=== PATIENT | male | born 1965 | race Caucasian/White ===

== ENCOUNTER 2019-10-23 15:58 | Outpatient (CLI) | payer SELFPAY ==
--- NOTE | 2019-10-23 16:06 | XR_ITS ---
WS: [id number] Right shoulder, 3 views, 10/23/2019 Clinical Data: PAIN IN RIGHT SHOULDER Comparison: None. Findings: No fractures or dislocations are seen. The AC joint is normal. The adjacent right clavicle, right sca pula and ribs are normal. The soft tissues are unremarkable. XR/XR shoulder RT min 2V* [id number] Impression: Negative right shoulder.
== END 2019-10-23 15:59 | disposition home or self-care (01) ==
LOC: RADOUTREAD 16:03
PROVIDERS: PCP Nurse Practitioner Family; Referring Provider Nurse Practitioner Family; Visit Provider Nurse Practitioner Family
DX: M25.511 Pain in right shoulder (principal)
CPT/HCPCS: 73030

== ENCOUNTER 2020-04-05 08:21 | Outpatient (CLI) | payer SELFPAY ==
--- NOTE | 2020-04-05 08:29 | FL_ITS ---
WS: [id number] FL upper GI w air* [id number] REASON FOR EXAM: GERD W/O ESOPHAGITIS FLUOROSCOPY TIME: 1.3 minutes FINDINGS: At fluoroscopy the esophagus is found to be patent. There is moderate gastroesophageal refl ux with a sliding hiatal hernia present. There was no ulcerated areas seen in the esophagus. The stomach show normal appearance there is no ulcers or masses or filling defects seen. The duodenal cap duodenal C curve were normal. FL/FL upper GI w air* [id number] IMPRESSION: Sliding hiatal hernia with mild to moderate gastroesophageal reflux Normal stomach duodenum and proximal small bowel.
== END 2020-04-05 08:22 | disposition home or self-care (01) ==
LOC: RAD 08:26
PROVIDERS: PCP Nurse Practitioner Family; Visit Provider Surgery
DX: K21.9 Gastro-esophageal reflux disease without esophagitis (principal); K44.9 Diaphragmatic hernia without obstruction or gangrene
CPT/HCPCS: 74246

== ENCOUNTER 2020-04-10 06:06 | Day surgery (SDC) | payer SELFPAY ==
[2020-04-08 13:12] VITALS: BMI 30.9
[2020-04-10] MEDS: sodium chloride 0.9% 1,000 ML 30 ML IV (06:19)
[2020-04-10 06:28] VITALS: BP 153/98; PULSE 87; RESP 18; TEMP 36.1; O2SAT 96
--- NOTE | 2020-04-10 06:28 | W.PM.OPSUD ---
Surgery/Procedure H&P Update DATE OF PROCEDURE: April 10, 2020 DATE H&P PERFORMED: 03/21/20 H&P UPDATE INFORMATION: I have reviewed H&P completed within last 30 days, I have examined patient prior to procedure (Except for the upper GI study showed a small sliding hiatal hernia otherwise normal) and No changes to prior documentation PREOP DIAGNOSIS: Chronic GERD and screening colonoscopy PRIMARY INDICATION FOR PROCEDURE: The same PLANNED PROCEDURE: Operation Date: 04/10/20 07:00 Proposed Procedures p EGD/COLON 53032 74607 K21.9 Z12.11(Not Applicable) - Romel Murphy MD s Colonoscopy(Not Applicable) - Romel Murphy MD
--- NOTE | 2020-04-10 06:45 | ANES.PREANE2 ---
Pre-Anesthetic Assessment Pre-Anesthetic Assessment: Height/Weight: Height 1.65 m Weight 84.368 kg Temp Pulse Resp BP Pulse Ox 97 F L 87 18 153/98 96 04/10/20 06:28 04/10/20 06:28 04/10/20 06:28 04/10/20 06:28 04/10/20 06:28 Preop Diagnosis: Chronic GERD and screening colonoscopy Proposed Procedure: Operation Date: 04/10/20 07:00 Proposed Procedures p EGD/COLON 38919 72998 K21.9 Z12.11(Not Applicable) - Romel Murphy MD s Colonoscopy(Not Applicable) - Romel Murphy MD Was Beta Josh taken within 24 hours: N/A Last intake: Intake Last Liquid Date 04/09/20 Last Liquid Time 22:00 Last Solid Date 04/08/20 Last Solid Time 18:00 Social: Social History: Tobacco (quit) Exam: Pre-Anes Outpt Exam: alert, oriented x 3, clear to auscultation bilaterally and regular rate & rhythm Airway: Submandibular: WNL Cervical ROM: WNL MP: 3 Dentition: Chipped and Loose History/ROS: No significant history except as noted Pulmonary: Pulmonary: None reported CV/HEM: CV/HEM: None reported : : None reported Hepatic: Hepatic: None reported GI: GI: GERD and Hiatus hernia Metabolic: Metabolic: None reported Musc/skel: Musc/skel: None reported Neuropsych: Neuropsych: Anxiety, Bipolar and Depression Anesthetic Plan: ASA status: 2 Anesthesia: Anesthesia Evaluation and MAC Risk of > 500 ml blood loss (7ml/kg in children): No PFSH Anesthesia PFSH: Medical History (Updated 04/10/20 @ 07:14 by Romel Murphy MD) Hoarseness of voice Surgical History History of esophagogastroduodenoscopy (EGD) History of hernia surgery Family History Denies family history of Anesthesia complication Bleeding disorder Social History Smoking and tobacco status: former smoker Alcohol intake: never History of recent travel: No Data Anesthesia Cardiac Studies: No Data to Display
[2020-04-10 07:17] VITALS: BP 105/70; PULSE 72; RESP 18; TEMP 36.1; O2SAT 94
[2020-04-10 07:26] VITALS: BP 128/90; PULSE 71; RESP 18; O2SAT 94
--- NOTE | 2020-04-10 08:12 | ANE.PACU2 ---
Inpatient post-anesthesia follow up: Airway intact: Yes Vital signs: Temperature 97.0 F Pulse Rate 71 Respiratory Rate 18 Blood Pressure 128/90 Pulse Oximetry 94 Oxygen Delivery Me thod Room Air Oxygen Flow Rate 2 Fraction of Inspir ed Oxygen Hydration adequate: Yes Nausea and vomiting: No Mental status: Baseline
[2020-04-11 13:33] LABS: H. Pylori / CLO Test Negative
== END 2020-04-10 07:39 | disposition home or self-care (01) ==
PROVIDERS: PCP Nurse Practitioner Family; Visit Provider Surgery
PROC: 0DJ08ZZ Inspection of Upper Intestinal Tract, Via Natural or Artificial Opening Endoscopic (ICD-10-PCS; CPT 43235; principal; 2020-04-10 07:00)
PROC: 0DJD8ZZ Inspection of Lower Intestinal Tract, Via Natural or Artificial Opening Endoscopic (ICD-10-PCS; CPT 45378; 2020-04-10 07:00)
DX: Z12.11 Encounter for screening for malignant neoplasm of colon (principal); K21.9 Gastro-esophageal reflux disease without esophagitis; R49.0 Dysphonia; K44.9 Diaphragmatic hernia without obstruction or gangrene; K29.70 Gastritis, unspecified, without bleeding; K29.80 Duodenitis without bleeding; Z87.891 Personal history of nicotine dependence
CPT/HCPCS: 12345; 43239; 45378; 87077; J2001; J2704; J7030

== ENCOUNTER 2020-07-12 08:48 | Emergency (ER) | payer SELFPAY ==
[2020-07-12 08:49] VITALS: BP 154/90; PULSE 95; RESP 18; TEMP 36.5; O2SAT 95; BMI 30.9
--- NOTE | 2020-07-12 09:08 | ED_ITS ---
HPI - Headache General: Chief Complaint: Headache Stated Complaint: MIGRAINE Time Seen by Provider: 07/12/20 08:58 Source: patient Mode of arrival: ambulatory Limitations: no limitations History of Present Illness: MD elicited complaint: headache and migraine Pertinent past history: migraines Onset (ago): day(s) (1) Onset description: gradually Location: occipital, parietal and down into neck Severity: moderate Quality & Timing: throbbing and squeezing Exacerbating factors: none Relieving factors: nothing Associated symptoms: Reports nausea, photophobia and vomiting; Deny chest pain, confusion, cough, diaphoresis, eye pain, eye redness, fever(s), lightheadedness, loss of vision, malaise, neck stiffness, numbness, paresthesias, pre-syncope, rash, seizures, short of breath, sound sensitivity, syncope or weakness Treatments prior to arrival: none Review of Systems Narrative: 55 yo male patient presents to ER with typical migraine headache. Pt states it started about a day ago and has progressively gotten worse. Pt states it radiates down into his neck. Pt denies any fever, chest pain nor SOB. pt does co n/v. Pt denies and recent illness. Pt denies any IV drug abuse, trauma or injury. Const: Denies: fever(s), malaise or diaphoresis Card: Denies: chest pain, lightheadedness, syncope or pre-syncope GI: Reports: nausea and vomiting Skin/Breast: Denies: rash Neuro: Denies: confusion PFSH ED PFSH: Medical History Hoarseness of voice Surgical History History of esophagogastroduodenoscopy (EGD) History of hernia surgery Family History Denies family history of Anesthesia complication Bleeding disorder Social History Smoking and tobacco status: former smoker Alcohol intake: never History of recent travel: No Physical Exam Const: COMMON NORMALS: no acute distress, average body habitus, patient oriented x3, no limitations, healthy appearing, alert and well nourished ORIENTATION/CONSCIOUSNESS: Yes oriented to person, Yes oriented to place and Yes oriented to time HENMT: COMMON NORMALS: normocephalic, atraumatic, hearing grossly normal bilaterally, external ears normal, EAC's normal, TM's normal bilaterally, Normal external nose present, Normal nasal mucous membranes and turbinates present, moist oral mucous membranes and oropharynx normal HEAD & SCALP: normocephalic and atraumatic FACE & SINUS: normal facial exam NOSE: Normal external nose present and Normal nasal mucous membranes and turbinates present EXTERNAL EAR: Yes external ears normal EXTERNAL AUDITORY CANAL: EAC's normal TYMPANIC MEMBRANE: TM's normal bilaterally MOUTH: Normal oral and palatal mucosa present Eye: COMMON NORMALS: Equal, round and reactive pupils present, EOMs intact bilaterally, conjunctivae normal, no scleral icterus, no papilledema, normal visual mckenzie by confrontation and fundi normal bilaterally CONJUNCTIVA: Yes conjunctivae normal PUPIL: Yes Equal, round and reactive pupils present DIRECT OPHTHALMOSCOPY: Yes no papilledema, Yes fundi normal bilaterally and Yes photophobia Neck/C-Spine: COMMON NORMALS: full ROM, no lymphadenopathy, supple, no meningeal signs, no JVD, Thyroid normal and No carotid bruits THYROID: Thyroid normal Lymph: LYMPHATIC: no lymphadenopathy noted Chest: COMMONS NORMALS: normal inspection of the chest, normal palpation of entire chest wall, normal inspection of the breasts and normal palpation of the breasts Resp: COMMON NORMALS: normal respiratory effort, No retractions, No use of accessory muscles, clear to auscultation bilaterally and percussion normal AUSCULTATION: clear to auscultation bilaterally PERCUSSION: percussion normal Cardio: COMMON NORMALS: no JVD, regular rate and regular rhythm RATE: regular rate RHYTHM: regular rhythm GI: COMMON NORMALS: Normal to inspection, nondistended, normoactive bowel sounds present, Soft to palpation, non-tender, No hepatosplenomegaly present, no masses and no bruits PALPATION: Yes Soft to palpation and Yes No hepatosplenomegaly present : COMMON NORMALS: Yes no CVA tenderness, Yes normal external exam, Yes Testes normal, Yes scrotum normal, Yes no scrotal swelling and Yes No hernias present BLADDER/KIDNEY EXAM: Yes no CVA tenderness Back/Pelvis: COMMON NORMALS: no CVA tenderness, thoracic and lumbar spine normal to inspection, no thoracic nor lumbar tenderness, thoraco-lumbar ROM normal and straight leg raise negative bilaterally Extremity: COMMON NORMALS: normal to inspection, full ROM, capillary refill normal, no joint enlargement, no clubbing, cyanosis or edema, no calf tenderness and no pedal edema Neuro: COMMON NORMALS: patient oriented x3, CN's II-XII intact bilaterally, moves all extremities, no focal motor deficits, no sensory deficits noted and gait normal SENSORIUM/ORIENTATION: Yes alert, Yes oriented to person, Yes oriented to place and Yes oriented to time MENINGEAL SIGNS: Yes no meningeal signs Psych: COMMON NORMALS: mental status grossly normal, Normal thought process present, cooperative, normal affect, speech normal, activity/motor behavior normal, denies hallucinations, denies homicidal ideation and denies suicidal kirt ation SPEECH: Yes normal speech THOUGHT PROCESS: Normal thought process present Skin: COMMON NORMALS: no rashes or lesions noted, no wounds, turgor normal, no jaundice, no petechiae and no mottling GENERAL SKIN EXAM: no rashes or lesions noted and turgor normal Course Vital Signs: Vital signs: Vital Signs Temperature 97.7 F 07/12/20 08:49 Pulse Rate 91 07/12/20 11:21 Respiratory Rate 16 07/12/20 09:44 Blood Pressure 160/103 07/12/20 09:44 Pulse Oximetry 94 07/12/20 11:21 MDM - Headache MDM Narrative: Medical decision making narrative: Pt is well appearing non toxic and in no acute distress. Pt described this as his typical migraine. Pt denies fever trauma or any IV drug abuse. Pt has no evidence of menigeal irritation. Pt was given Toradol, Decadron and Zofran and had resolution of symptoms. Pt states he is ready to go home that he feels much better. I discussed return precautions with patient as well as home care. Pt is medically cleared and appropriate for discharge at this time Differential Diagnosis: Differential diagnosis headache: Likely migraine, tension headache, subarachnoid hemorrhage, headache, meningitis, sinusitis and postconcussion syndrome Discharge Plan Discharge Patient Disposition: Home Clinical Impression: Migraine Qualifiers: Migraine type: with aura Status migrainosus presence: without status migrainosus Intractability: not intractable Qualified Code(s): G43.109 - Migraine with aura, not intractable, without status migrainosus Condition: Stable Prescriptions: No Action Dexilant 30 mg capsule,biphase delayed releas 30 mg PO DAILY RF: 0 bupropion HCl 75 mg Tablet 75 mg PO DAILY RF: 0 Discharge Orders: Discharge Order (Routine); Ordered 07/12/20 Ordered By: Carole Barry Referrals: JERRICA REID FNP [Primary Care Provider] - Discharge Diet: Advance as tolerated Discharge Activity: Resume usual activity Patient Instructions: Headache - Migraine (Adult) Activity Restrictions/Additional Instructions: Please return to the ER with worsening of headache, confusion, fever or any other concerning symptoms Discharge Date/Time: 07/12/20 11:22 Coding Level of Care Code 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
[2020-07-12] MEDS: sodium chloride 0.9% 1,000 ML 999 ML IV (09:28)
[2020-07-12] MEDS: ketorolac 30 mg/mL INJ IVP (09:29)
[2020-07-12] MEDS: ondansetron 2 mg/ML SDV 2 mL 4 MG IVP (09:32)
[2020-07-12] MEDS: dexamethasone 10 mg/mL INJ IVP (09:36)
[2020-07-12 09:44] VITALS: BP 160/103; PULSE 82; RESP 16; O2SAT 96
[2020-07-12 11:21] VITALS: PULSE 91; O2SAT 94
== END 2020-07-12 11:22 | disposition home or self-care (01) ==
PROVIDERS: Emergency Provider Registered Nurse; PCP Nurse Practitioner Family
DX: G43.109 Migraine with aura, not intractable, without status migrainosus (principal); Z87.891 Personal history of nicotine dependence
CPT/HCPCS: 12345; 96361; 96374; 96375; 99283; J1100; J1885; J2405; J7030

== ENCOUNTER 2020-07-16 09:29 | Emergency (ER) | payer SELFPAY ==
[2020-07-16 09:37] VITALS: BP 160/128; PULSE 110; RESP 16; TEMP 36.3; O2SAT 98; BMI 29.2
--- NOTE | 2020-07-16 11:19 | XRR_ITS ---
PROCEDURE INFORMATION: Exam: XR Cervical Spine, 2 or 3 Views Exam date and time: 07/16/2020 12:12 PM Age: 55 years old Clinical indication: Neck pain TECHNIQUE: Imaging protocol: XR of the cervical spine, 2 or 3 views. COMPARISON: No relevant prior studies available. FINDINGS: Vertebrae: Mild degenerative change. No acute bony injury or malalignment in the cervical spine. Artifactual radiolucency overlying the base of the odontoid on the open mouth view. Soft tissues: Unremarkable. XR/XR cervical spine 3V* [id number] IMPRESSION: Mild degenerative change.
[2020-07-16] MEDS: orphenadrine 30 mg/mL Inj 2 mL 60 MG IVP (11:38)
[2020-07-16 11:39] VITALS: RESP 18
[2020-07-16] MEDS: morphine 4 mg/mL SDV 1 mL 2 MG IVP (11:39)
[2020-07-16] MEDS: metoclopramide 5 mg/mL SDV 2 mL 10 MG IVP (11:40)
[2020-07-16 11:46] LABS: Basophils % 0.4 %; Eosinophils # 0.1 10^3/uL (0.0-0.8); Eosinophils % 0.8 %; Hematocrit 50.2 % (42.0-52.0); Hemoglobin 17.2 g/dL (11.7-16.6); Lymphocytes # 2.3 10^3/uL (0.8-4.8); Lymphocytes % 21.2 %; Mean Corpuscular HGB Conc 34.3 g/dL (30.0-36.0); Mean Corpuscular Hemoglobin 28.9 pg (28.0-34.0); Mean Corpuscular Volume 84.4 fL (80-94); Mean Platelet Volume 9.2 fL (7.4-10.4); Neutrophils # 7.24 10^3/uL (1.8-7.7); Neutrophils % 68.3 %; Nucleated Red Blood Cells % 0 %; Platelet Count 456 10^3/cmm (130-400); Red Blood Count 5.95 10^6/uL (4.1-5.3); Red Cell Distribution Width 12.9 % (12.1-15.1); White Blood Count 10.6 10^3/uL (4.0-10.0)
[2020-07-16 11:55] LABS: Alanine Aminotransferase 29 U/L (0-41); Albumin Level 4.4 g/dL (3.5-5.2); Alkaline Phosphatase 98 IU/L (40-130); Anion Gap 17.4 (5-19); Aspartate Amino Transferase 22 U/L (0-40); Blood Urea Nitrogen 11 mg/dL (6-20); Calcium 10.1 mg/dL (8.5-10.5); Carbon Dioxide 24 mmol/L (22-29); Chloride 95 mmol/L (98-107); Globulin 3.5 g/dL (1.3-4.6); Glomerular Filtration Rate 101.1 mL/min (90-130); Glucose 110 mg/dL (65-115); Osmolality Calculated 274 mOsm/kg (285-295); Potassium 4.4 mmol/L (3.5-5.1); Sodium 132 mmol/L (136-145); Total Bilirubin 0.4 mg/dL (0.15-1.2); Total Protein 7.9 g/dL (6.6-8.7)
[2020-07-16] MEDS: ketorolac 30 mg/mL INJ IVP (12:16)
--- NOTE | 2020-07-16 12:30 | W.ED.BACK ---
HPI - Back Pain/Injury General: Chief Complaint: Back Pain/Injury Stated Complaint: BACK PAIN Time Seen by Provider: 07/16/20 10:41 History of Present Illness: HPI Narrative: 55-year-old male presents to the emergency room with complaints of the neck pain and headache. He has had this several times in the past. Pain radiates from the neck up into the base of the skull he is not had any fever sweats chills or rash no recent trauma or injury no pain radiating to the extremities. He has been able to keep things down the nausea and vomiting has improved but now he has the upper neck pain radiating into the base of his skull and into the occipital area no visual changes MD elicited complaint: other (neck pain.) Onset (ago): day(s) Timing: intermittent Severity: moderate Similar Symptoms Previously: Yes Quality: dull and throbbing Radiation: other (Radiating from the upper cervical spine into the base of the skull and the occiput) Exacerbating factors: none Relieving factors: none Associated symptoms: Deny abdominal pain, arthralgias, chills, change in bowel habits, difficulty walking, dysuria, fatigue, fecal incontinence, fever(s), hematuria, myalgias, numbness, syncope, tingling/numbness/burning, urinary frequency, urinary urgency or weakness Review of Systems Const: Denies: fever(s), chills or fatigue ENMT: Denies: throat pain, ear or mastoid pain, nasal discharge or nasal congestion Card: Denies: syncope Resp: Denies: dyspnea, productive cough or non-productive cough GI: Denies: abdominal pain, fecal incontinence or change in bowel habits : Denies: dysuria, urinary urgency or hematuria Skin/Breast: Denies: rash or pruritus Neuro: Denies: difficulty walking PFSH ED PFSH: Medical History Hoarseness of voice Surgical History History of esophagogastroduodenoscopy (EGD) History of hernia surgery Family History Denies family history of Anesthesia complication Bleeding disorder Social History (Reviewed 10/03/20 @ 16:53 by BRIAN Trejo Smoking and tobacco status: former smoker Alcohol intake: never History of recent travel: No Physical Exam Const: COMMON NORMALS: no acute distress GENERAL APPEARANCE: cooperative and comfortable ORIENTATION/CONSCIOUSNESS: Yes awake, Yes oriented to person, Yes oriented to place and Yes oriented to time HENMT: COMMON NORMALS: normocephalic, atraumatic and hearing grossly normal bilaterally HEAD & SCALP: normocephalic and atraumatic Eye: COMMON NORMALS: Equal, round and reactive pupils present, EOMs intact bilaterally, conjunctivae normal and no scleral icterus CONJUNCTIVA: Yes conjunctivae normal PUPIL: Yes Equal, round and reactive pupils present Neck/C-Spine: COMMON NORMALS: full ROM, no lymphadenopathy, supple and no JVD Lymph: LYMPHATIC: no lymphadenopathy noted and no lymphedema noted Resp: COMMON NORMALS: normal respiratory effort, No retractions, No use of accessory muscles and clear to auscultation bilaterally AUSCULTATION: clear to auscultation bilaterally Cardio: COMMON NORMALS: no JVD, regular rate, regular rhythm and No murmurs present (Cardio) RATE: regular rate RHYTHM: regular rhythm GI: COMMON NORMALS: Soft to palpation and No hepatosplenomegaly present AUSCULTATION: Yes normoactive bowel sounds PALPATION: Yes Soft to palpation, No Tenderness to palpation present (GI), No Guarding due to palpation present (GI) and Yes No hepatosplenomegaly present Extremity: COMMON NORMALS: normal to inspection, capillary refill normal, no clubbing, cyanosis or edema, no calf tenderness and no pedal edema Neuro: SENSORIUM/ORIENTATION: Yes oriented to person, Yes oriented to place and Yes oriented to time Skin: COMMON NORMALS: no rashes or lesions noted GENERAL SKIN EXAM: no rashes or lesions noted Course Vital Signs: Vital signs: Vital Signs Temperature 97.3 F L 07/16/20 09:37 Pulse Rate 110 H 07/16/20 09:37 Respiratory Rate 18 07/16/20 11:39 Blood Pressure 160/128 07/16/20 09:37 Pulse Oximetry 98 07/16/20 09:37 MDM - Back Pain/Injury Lab Data: Labs: Lab Results 07/16/20 07/16/20 Range/Units 11:31 11:31 WBC 10.6 H (4.0-10.0) 10^3/ uL RBC 5.95 H (4.1-5.3) 10^6/u L Hgb 17.2 H (11.7-16.6) g/dL Hct 50.2 (42.0-52.0) % MCV 84.4 (80-94) fL MCH 28.9 (28.0-34.0) pg MCHC 34.3 (30.0-36.0) g/dL RDW 12.9 (12.1-15.1) % Plt Count 456 H (130-400) 10^3/c mm MPV 9.2 (7.4-10.4) fL Neut % (Auto) 68.3 % Lymph % (Auto) 21.2 % Frio % (Auto) 9.0 % Eos % (Auto) 0.8 % Baso % (Auto) 0.4 % Neut # (Auto) 7.24 (1.8-7.7) 10^3/u L Lymph # (Auto) 2.3 (0.8-4.8) 10^3/u L Frio # (Auto) 1.0 H (0.2-0.9) 10^3/u L Eos # (Auto) 0.1 (0.0-0.8) 10^3/u L Baso # (Auto) 0.0 (0.0-0.1) 10^3/u L Nucleated RBC % (a uto) 0 % Nucleated RBCs # 0.0 /100WBC Sodium 132 L (136-145) mmol/L Potassium 4.4 (3.5-5.1) mmol/L Chloride 95 L (98-107) mmol/L Carbon Dioxide 24 (22-29) mmol/L Anion Gap 17.4 (5-19) BUN 11 (6-20) mg/dL Creatinine 0.8 (0.7-1.2) mg/dL GFR Calculation 101.1 (90-130) mL/min Glucose 110 (65-115) mg/dL Calculated Osmolal ity 274 L (285-295) mOsm/k g Calcium 10.1 (8.5-10.5) mg/dL Total Bilirubin 0.4 (0.15-1.2) mg/dL AST 22 (0-40) U/L ALT 29 (0-41) U/L Alkaline Phosphata se 98 (40-130) IU/L Total Protein 7.9 (6.6-8.7) g/dL Albumin 4.4 (3.5-5.2) g/dL Globulin 3.5 (1.3-4.6) g/dL Discharge Plan Discharge Patient Disposition: Home Clinical Impression: Cervicalgia, Headache Condition: Stable Prescriptions: New hydrocodone-acetaminophen 5-325 mg tablet 1 tab PO Q6H PRN (Reason: pain) Qty: 20 RF: 0 Medrol (Jairon) 4 mg tablets,dose pack See Rx Instructions .ROUTE .COMPLEX Qty: 21 RF: 0 tizanidine 4 mg capsule 4 mg PO Q6H PRN (Reason: muscle spasticity) Qty: 30 RF: 0 No Action Dexilant 30 mg capsule,biphase delayed releas 30 mg PO DAILY RF: 0 cyclobenzaprine 10 mg tablet 10 mg PO BID PRN (Reason: muscle spasm) Qty: 7 RF: 0 bupropion HCl 75 mg Tablet 75 mg PO DAILY RF: 0 Tylenol Extra Strength 500 mg Tablet 1,000 mg PO PRN RF: 0 Discharge Orders: Discharge Order (Routine); Ordered 07/16/20 Ordered By: Homar Bean Referrals: [facility], [Primary Care Provider] - Discharge Date/Time: 07/16/20 12:43 Coding Level of Care Code 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
== END 2020-07-16 12:43 | disposition home or self-care (01) ==
PROVIDERS: Emergency Provider Family Medicine
DX: M54.2 Cervicalgia (principal); R51 Headache; Z87.891 Personal history of nicotine dependence
CPT/HCPCS: 12345; 36415; 72040; 80053; 85025; 96374; 96375; 99282; 99283; J1885; J2270; J2360; J2765

== ENCOUNTER 2024-02-04 15:49 | Outpatient (CLI) | payer MEDICAID, SELFPAY ==
--- NOTE | 2024-02-04 15:57 | XR_ITS ---
WS: [id number] Exam: XR knee LT 4V [id number] Date/Time of Exam: 02/04/2024 4:02 PM Reason For Exam: PAIN IN LEFT KNEE (ICD-M25.562) No fracture or dislocation. The joint compartments are preserved. Effusion in the suprapatellar bursa . IMPRESSION: 1. Moderate joint effusion. No fracture or other significant finding.
== END 2024-02-04 15:50 | disposition home or self-care (01) ==
LOC: RAD 15:52
PROVIDERS: PCP Nurse Practitioner Family; Visit Provider Nurse Practitioner Family
DX: M25.562 Pain in left knee (principal); M25.462 Effusion, left knee
CPT/HCPCS: 73564

== ENCOUNTER 2024-04-11 08:37 | Outpatient (CLI) | payer MEDICAID, SELFPAY ==
--- NOTE | 2024-04-11 08:44 | MR_ITS ---
WS: [id number] MRI LEFT KNEE NONCONTRAST TECHNIQUE: Axial PD, coronal PD fat sat, coronal PD, sagittal PD, and sagittal PD fat-sat images obta ined. CLINICAL INFORMATION: PAIN IN LEFT KNEE COMPARISON: None. FINDINGS: Distal quadriceps and patella tendons are intact. Slightly hypertrophic patella. Moderate tricompartm ental arthritis. Diffuse thickening with increased T1 and T2 signal involving the ACL compatible with mucoid degeneration. PCL appears intact. Small amount of prepatellar and infrapatellar soft tissue e tomás. Moderate chondromalacia patella. Normal medial and lateral patellar retinaculum. Normal lateral collateral ligament. Normal popliteus. Normal medial collateral ligament. Normal popliteal fossa. Chronic thinning of the medial and lateral meniscus. Slight peripheral extrus ion of the lateral meniscus. No acute appearing meniscal tears. No significant joint effusion. MR/MR knee LT wo con* [id number] IMPRESSION: 1. Diffuse mucoid degeneration of the ACL which appears intact. PCL is intact. 2. Moderate chondromalacia patella grade 2. No visualized patella fractures. S mall amount of prepatellar and infrapatellar soft tissue edema. 3. Normal medial and lateral meniscus. No acute appearing meniscal tears. Gluing Machine Operator drew thinning of the medial and lateral meniscus. Slight peripheral extrusion of the lateral meniscus. 4. Medial and lateral collateral ligaments appear intact. 5. Moderate tricompartmental arthritis Outbridge grading: grade II: blister-like swelling/fraying of articular cartila ge extending to surface
== END 2024-04-11 08:38 | disposition home or self-care (01) ==
PROVIDERS: PCP Family Medicine; Visit Provider Family Medicine
DX: M17.12 Unilateral primary osteoarthritis, left knee (principal); M23.611 Other spontaneous disruption of anterior cruciate ligament of right knee; M22.42 Chondromalacia patellae, left knee
CPT/HCPCS: 73721

== ENCOUNTER 2024-05-23 15:17 | Inpatient (IN) | payer MEDICAID, SELFPAY ==
[2024-05-23 15:19] VITALS: BP 152/86; PULSE 114; TEMP 37; O2SAT 97; BMI 26.6
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
[2024-05-23 16:03] LABS: Basophils % 0.4 %; Eosinophils % 0.4 %; Hematocrit 44.3 % (37-53); Lymphocytes # 1.8 10^3/uL (0.8-4.8); Lymphocytes % 19.7 %; Mean Corpuscular HGB Conc 35.2 g/dL (30-55); Mean Corpuscular Volume 85.2 fl (82-101); Mean Platelet Volume 9.4 fL (7.4-10.4); Monocytes # 0.7 10^3/uL (0.2-0.9); Monocytes % 7.5 %; Neutrophils # 6.39 10^3/uL (1.8-7.7); Neutrophils % 71.8 %; Nucleated Red Blood Cells % 0 %; Platelet Count 369 10^3/cmm (157-399); Red Cell Distribution Width 12.6 % (12.1-15.1); White Blood Count 8.92 10^3/uL (3.29-11.43)
[2024-05-23 16:23] LABS: Acetaminophen < 5.0 ug/mL (10-30); Alanine Aminotransferase 26 U/L (0-41); Albumin Level 4.4 g/dL (3.5-5.2); Alcohol Level < 10 mg/dL (0-10); Alkaline Phosphatase 96 U/L (40-130); Aspartate Amino Transferase 25 U/L (0-40); Blood Urea Nitrogen 18 mg/dL (6-20); Calcium 9.3 mg/dL (8.5-10.5); Carbon Dioxide 21 mmol/L (22-29); Chloride 104 mmol/L (98-107); Creatinine Clr Calc Pharmacy 95.0033; Glomerular Filtration Rate 99.6 mL/min (90-130); Glucose 120 mg/dL (65-115); Osmolality Calculated 289 mOsm/kg (285-295); Salicylate < 0.3 mg/dL (3-10); Sodium 138 mmol/L (136-145); Total Bilirubin 0.6 mg/dL (0.15-1.2); Total Protein 7.4 g/dL (6.6-8.7)
[2024-05-23 16:29] VITALS: BP 151/102; PULSE 103; RESP 18; TEMP 36.5; O2SAT 96
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
--- NOTE | 2024-05-23 17:59 | PC.NURSE ---
96 hour hold rights read and reviewed to patient. Patient stated He can not stay that long, he will lose his job and he has alot of mouths to feed. This nurse instructed patient that once he get down to the unit he can discuss his concerns with Dr. Del Cid. Patient verbalized understandings of rights. Copy of rights was given to patient.
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
[2024-05-23 20:23] VITALS: BP 142/93; PULSE 95; RESP 18; TEMP 36.9; O2SAT 96
[2024-05-24 06:00] VITALS: BP 143/99; PULSE 85; RESP 16; TEMP 36.6; O2SAT 99
[2024-05-24 08:00] VITALS: BP 153/94; PULSE 81; RESP 16; TEMP 36.7; O2SAT 98
[2024-05-24] MEDS: buPROPion SR (12 HR) 150 mg Tablet 75 MG PO (08:13)
[2024-05-24] MEDS: pantoprazole DR 40 mg Tablet PO (08:13)
[2024-05-24] MEDS: lisinopril 10 mg Tablet PO (08:14)
[2024-05-24] MEDS: atorvastatin 40 mg Tablet 20 MG PO (08:39)
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
[2024-05-24 09:10] LABS: Amphetamines Screen Urine Positive (Negative); Barbiturates Screen Urine Negative (Negative); Benzodiazepines Screen Urine Positive (Negative); Cocaine Screen Urine Negative (Negative); Opiate Screen Urine Negative (Negative); PCP Screen Urine Negative (Negative); THC Screen Urine Positive (Negative)
[2024-05-24 11:56] VITALS: BP 149/88; PULSE 89; RESP 16; TEMP 36.7; O2SAT 98
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
[2024-05-24 15:16] VITALS: BP 149/88; PULSE 89; RESP 16; TEMP 36.7; O2SAT 98
== END 2024-05-24 16:20 | disposition home or self-care (01) | DRG 885 ==
LOC: ER 16:38 → NP 17:48
PROVIDERS: Admitting Provider Psychiatry & Neurology Psychiatry; Emergency Provider Physician Assistant; PCP Family Medicine; Visit Provider Psychiatry & Neurology Psychiatry
DX: F34.9 Persistent mood [affective] disorder, unspecified (principal); F15.10 Other stimulant abuse, uncomplicated; I10 Essential (primary) hypertension; E78.00 Pure hypercholesterolemia, unspecified; Z87.891 Personal history of nicotine dependence; Z62.810 Personal history of physical and sexual abuse in childhood; G89.29 Other chronic pain
CPT/HCPCS: 36415; 80053; 80306; 80307; 85025; 97150; 97165; 99285

== ENCOUNTER 2024-07-12 15:43 | Outpatient (CLI) | payer MEDICAID, SELFPAY ==
--- NOTE | 2024-07-12 15:49 | XRR_ITS ---
PROCEDURE INFORMATION: Exam: XR Right Shoulder Exam date and time: 07/12/2024 3:55 PM Age: 59 years old Clinical indication: Right; Patient HX: Patient states tore muscle in shoulder in 1999, chronic pain since then; Additional info: Pain in right shoulder TECHNIQUE: Imaging protocol: Radiologic exam of the right shoulder. Views: 2 or more views. COMPARISON: CR XR shoulder RT min 2V* [id number] 10/23/2019 4:12 PM FINDINGS: Bones/joints: 5 mm linear calcification at the infraspinatus insertion, compatible with mild calcific tendinopathy. Mild widening of the acromioclavicular joint. Could be related to sequela of chronic injury. No acutely displaced fractures. No joint dislocation. Suggestion of a small glenohumeral joint effusion. Soft tissues: Normal. XR/XR shoulder RT min 2V* [id number] IMPRESSION: 1. 5 mm linear calcification at the infraspinatus insertion, compatible with mild calcific tendinopathy. 2. Mild widening of the acromioclavicular joint. Could be related to sequela of chronic injury. 3. Suggestion of a small glenohumeral joint effusion.
== END 2024-07-12 15:44 | disposition home or self-care (01) ==
LOC: RAD 15:45
PROVIDERS: PCP Family Medicine; Visit Provider Family Medicine
DX: M25.811 Other specified joint disorders, right shoulder (principal); M25.511 Pain in right shoulder
CPT/HCPCS: 73030

== ENCOUNTER → 2024-09-10 12:40 | Outpatient (BNVA) | payer MEDICAID, SELFPAY | PROVIDERS: PCP Family Medicine; Visit Provider Emergency Medicine | DX: M79.89 Other specified soft tissue disorders (principal) | CPT/HCPCS: 73130 ==

== ENCOUNTER → 2024-11-21 15:04 | Outpatient (BNVA) | payer MEDICAID, SELFPAY | PROVIDERS: PCP Family Medicine; Visit Provider Physician Assistant | DX: M67.911 Unspecified disorder of synovium and tendon, right shoulder (principal); M75.41 Impingement syndrome of right shoulder; M25.511 Pain in right shoulder | CPT/HCPCS: 73030 ==

== ENCOUNTER 2024-12-18 14:27 | Outpatient (CLI) | payer MEDICAID, SELFPAY ==
--- NOTE | 2024-12-18 14:30 | MR_ITS ---
WS: [id number] MRI RIGHT SHOULDER NONCONTRAST TECHNIQUE: Sagittal T2, coronal T1, T2 and proton density imaging. Axial gradient PDE imaging. CLINICAL INFORMATION: M75.41 - Impingement syndrome of right shoulder COMPARISON: None. FINDINGS: Moderate to advanced arthritis AC joint with downsloping of the acromion. Subacromial spurring with narrowing of the subacromial space. Impingement of the distal supraspinatus with tendinopathy. High-grade tear of the distal supraspinatus at the insertion with tendon retraction measuring 1.9 cm. Chronic thinning of the infraspinatus with tendinopathy. Small amount of subacromial and subdeltoid fluid. Normal teres minor. Tendinopathy with intrasubstance tear involving the subscapularis. Biceps tendon appears intact within the bicipital groove. Advanced narrowing of the glenohumeral articulation . Subchondral cystic change involving the glenoid. Intra-articular biceps tendon appears intact. Biceps labral anchor appears intact. MR/MR shoulder RT wo con* [id number] IMPRESSION: 1. Advanced arthritis AC joint with subacromial narrowing. 2. High-grade tear distal supraspinatus with tendon retraction measuring 1.9 c m. 3. Tendinopathy infraspinatus with chronic thinning. 4. Tendinopathy subscapularis with small intrasubstance tear. 5. Biceps tendon appears intact within the bicipital groove. Intra-articular b iceps tendon appears intact. 6. Moderate to advanced degenerative narrowing of the glenohumeral articulatio n with subchondral cystic change involving the glenoid.
== END 2024-12-18 14:28 | disposition home or self-care (01) ==
PROVIDERS: PCP Family Medicine; Visit Provider Physician Assistant
DX: M75.41 Impingement syndrome of right shoulder (principal); M67.911 Unspecified disorder of synovium and tendon, right shoulder; M19.011 Primary osteoarthritis, right shoulder; M75.101 Unspecified rotator cuff tear or rupture of right shoulder, not specified as traumatic; R93.6 Abnormal findings on diagnostic imaging of limbs
CPT/HCPCS: 73221

== ENCOUNTER 2025-04-12 09:19 | Day surgery (SDC) | payer MEDICAID, SELFPAY ==
[2025-04-12] VITALS (13 sets, daily range): BP systolic 128–183; BP diastolic 83–109; PULSE 70–78; RESP 12–23; TEMP 36.2–36.7; O2SAT 92–99; BMI 28.3
[2025-04-12] MEDS: sodium chloride 0.9% 1,000 ML 30 ML IV (10:06)
[2025-04-12] MEDS: acetaminophen 1,000 MG/100 ML PIGGYBACK 400 MG IV (10:09)
[2025-04-12] MEDS: ketorolac 30 mg/mL INJ IVP (10:09)
--- NOTE | 2025-04-12 10:15 | ANES.PREANE2 ---
Pre-Anesthetic Assessment Height/Weight: Height 1.65 m Weight 77.111 kg Temp Pulse Resp BP Pulse Ox O2 Del Method 98.1 F 77 18 142/95 96 Room Air 04/12/25 09:50 04/12/25 09:50 04/12/25 09:50 04/12/25 09:50 04/12/25 09:50 04/12/25 09:57 Operation Date: 04/12/25 11:05 Proposed Procedures p Shoulder Arthroscopy(Right) - Anurag Wadena, DO s Subacromial Decompression(Right) - Anurag Wadena, DO s AC Joint Resection(Right) - Anurag Cindy, DO s Debridement Upper Extremity rotator cuff vs repair(Right) - Anurag Cindy, DO s Bicep Tenodesis(Right) - Anurag Wadena, DO s Possible Subacromial Ballon Spacer(Right) - Anurag Cindy, DO Familial anesthetic complications: none Was Beta Josh taken within 24 hours: N/A Was Clonidine taken within 24 hours: N/A Last intake: Intake Last Liquid Date 04/11/25 Last Liquid Time 21:00 Last Solid Date 04/11/25 Last Solid Time 21:30 Social No alcohol and No tobacco Exam alert, oriented x 3, clear to auscultation bilaterally and regular rate & rhythm CV/HEM Hypertension GI Gastroesophageal Reflux Disease and Hiatal Hernia Metabolic Hyperlipidemia Anesthetic Plan ASA status: 3 Anesthesia: General and Regional (specify below) Risk of > 500 ml blood loss (7ml/kg in children): No Medications/Allergies Home Medications ?Medication ?Instructions ?Recorded ?Confirmed ?Last Taken ?Type bupropion HCl 150 mg 24 hr tablet, 150 mg PO DAILY 30 days #30 tabs 05/24/24 04/11/25 04/12/25 Rx extended release simvastatin 10 mg tablet 10 mg PO DAILY 09/10/24 04/11/25 04/11/25 History lisinopril 10 mg tablet 10 mg PO 1XD 04/11/25 04/11/25 04/11/25 History omeprazole 40 mg capsule,delayed 40 mg PO 1XD 04/11/25 04/11/25 04/12/25 History release hydrocodone 7.5 mg-acetaminophen 1 tab PO Q6H PRN pain #20 tabs 04/12/25 Unknown Rx 325 mg tablet Allergies Allergy/AdvReac Type Severity Reaction Status Date / Time No Known Allergies Allergy Verified 04/11/25 10:17 Current Medications Generic Name Dose Route Start Last Admin Trade Name Freq PRN Reason Stop Dose Admin Sodium Chloride 1,000 mls @ 30 mls/hr 04/12/25 09:30 04/12/25 10:06 Sodium Chloride 0.9% IV 04/13/25 09:29 30 mls/hr .Q24H PEARL Administration PFSH Anesthesia Medical History Psychiatric care Hoarseness of voice Surgical History History of hernia surgery History of esophagogastroduodenoscopy (EGD) Family History Denies family history of Anesthesia complication Bleeding disorder Social History Smoking and tobacco/nicotine status: former use of tobacco/nicotine Alcohol intake: never Substance/Drug Use: never
--- NOTE | 2025-04-12 10:16 | W.PM.OPSFHP ---
Same Day Surgery H&P Indication for Procedure/HPI DATE OF PROCEDURE: April 12, 2025 CHIEF COMPLAINT/INDICATIONFOR SURGICAL PROCEDURE: Right shoulder rotator cuff tear, AC joint arthritis, subacromial impingement, biceps tendinitis PREOP DIAGNOSIS: Right shoulder rotator cuff tear, AC joint arthritis, subacromial pigeon, b PLANNED PROCEDURE: Operation Date: 04/12/25 11:05 Proposed Procedures p Shoulder Arthroscopy(Right) - Anurag White DO s Subacromial Decompression(Right) - Anurag White, s AC Joint Resection(Right) - Anurag White, s Debridement Upper Extremity rotator cuff vs repair(Right) - Anurag White DO s Bicep Tenodesis(Right) - Anurag White DO s Possible Subacromial Ballon Spacer(Right) - Anurag White DO Medications/Allergies* Home Medications ?Medication ?Instructions ?Recorded ?Confirmed ?Type simvastatin 10 mg tablet 10 mg PO DAILY 09/10/24 04/11/25 History lisinopril 10 mg tablet 10 mg PO 1XD 04/11/25 04/11/25 History omeprazole 40 mg capsule,delayed 40 mg PO 1XD 04/11/25 04/11/25 History release Allergies/Adverse Reactions Allergy/AdvReac Type Severity Reaction Status Date / Time No Known Allergies Allergy Verified 04/11/25 10:17 Current Medications: Generic Name Dose Route Start Last Admin Trade Name Freq PRN Reason Stop Dose Admin Sodium Chloride 1,000 mls @ 30 mls/hr 04/12/25 09:30 04/12/25 10:06 Sodium Chloride 0.9% IV 04/13/25 09:29 30 mls/hr .Q24H PEARL Administration Pertinent History/Comorbid Conditions* Medical History (Updated 01/27/25 @ 23:32 by Anurag White DO) Psychiatric care Hoarseness of voice Surgical History (Updated 02/13/20 @ 14:43 by Romel Murphy MD) History of hernia surgery History of esophagogastroduodenoscopy (EGD) Family History (Updated 02/13/20 @ 14:19 by Ashlyn Patiño RN) Denies family history of Anesthesia complication Bleeding disorder Social History Smoking and tobacco/nicotine status: former use of tobacco/nicotine Alcohol intake: never Substance/Drug Use: never Pertinent Exam Findings alert, oriented x 3, operative site marked and procedure specific exam findings Please refer to detailed orthopedic examination on 01/23/25 listed below: Cervical Spine -Negative Spurling's Test Right Shoulder -Tender to palpation over biceps tendon -Range of motion up to 180 degrees -Rotator cuff strength-weakness detected with external rotation. internal rotation intact -Jobes test-positive -Speed's Test-positive -O'Briens test-positive -Swain impingement-positive -Crossover test-positive - normal cap refill under 2 seconds and patient can wiggle fingers. -Sensation to hand intact Recommendations Risks and benefits of procedure reviewed and Patient/family agree to proceed Surgery/Procedure today Other Plans: Plan to proceed to the OR today for right shoulder diagnostic and surgical arthroscopy with subacromial decompression, AC joint resection, rotator cuff debridement versus repair, possible bicep tenodesis, possible subacromial balloon spacer. Patient understands the ins and outs procedure the risks the benefits complication alternatives with surgery. Understanding risk of surgery patient elects proceed with surgical intervention. All questions have been answered at this time. Will proceed to the OR today. Coding Level of Care Code Acute Code for Chg Fwperry
[2025-04-12] MEDS: ceFAZolin 2,000 MG in sodium chloride 0.9% (plus) 50 ML 100 MG IV (10:33)
--- NOTE | 2025-04-12 11:29 | ANES.PROC ---
Anesthesia Procedures Procedure/Date: 04/12/25 Nerve Block ^: Nerve Block 1: Main Anesthesia: general anesthesia Time Out Performed: Yes Consent: requested by attending/covering physician, from patient, risks and benefits reviewed and patient agrees to proceed Nerve block location: interscalene and brachial plexus Anesthesia monitors applied: pulse oximetry, EKG, BP cuff and oxygen Nerve block position: semi sitting Anesthetic Used: ropivicaine 0.5% and with decadron (4 mg decadron) Amount of anesthesia used (mL): 20 Ultrasound used to: recognize landmarks, visualize and ID brachial plexus and visualize and ID interscalene groove Nerve Stimulator Used?: Yes Interscalene/Femoral BLK: 4 stimuplex 21 g needle used for position and inplane approach, visualize local anesthetic spread and no vascular puncture identified Injection: neg aspiration of heme Patient Tolerated Procedure: well and no complications Complications: none
[2025-04-12] MEDS: EPINEPHrine 1 mg/mL INJ 2 MG XX (11:35)
--- NOTE | 2025-04-12 12:26 | P.BOP_ITS ---
Date of Procedure: 04/12/2025 Surgeon: Anurag White DO Clinical Research Analyst(s): Carlos White PA-C Procedure(s) performed: Right shoulder diagnostic and surgical arthroscopy with rotator cuff repair (medium/large) Right shoulder diagnostic and surgical arthroscopy with biceps tenodesis Right shoulder diagnostic and surgical arthroscopy with labral debridement Right shoulder diagnostic and surgical arthroscopy with glenohumeral joint chondroplasty Right shoulder diagnostic and surgical arthroscopy with subscapularis tendon repair Right shoulder diagnostic and surgical arthroscopy with subacromial decompression Right shoulder diagnostic and surgical arthroscopy with AC joint resection Findings of the procedure(s): Patient was found to have a medium to large sized tear of the rotator cuff that was repairable also patient was found to have tearing of the superior labral bicep tendon complex with noticeable instability and tendinitis/inflammation around the bicep tendon as a result patient underwent a biceps tenodesis patient was found to have 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 Tolerated well without issues or complications placed UltraSling and taken recovery in stable condition Estimated blood loss: 10 mL Specimen(s) removed: None Post-operative diagnosis: right shoulder rotator cuff tear, subscapularis tendon tear, subacromial impingement, AC joint arthritis, SLAP tear/biceps tendinitis/unstable biceps anchor, glenohumeral joint chondromalacia, circumferential labral fraying
--- NOTE | 2025-04-12 12:29 | PM.OP ---
Operative Report Date of procedure: April 12, 2025 Surgeon: Anurag White DO Telecommunication Tower Technician: Carlos White PA-C: PA was necessary for assistance in this case with shoulder positioning to execute the procedure, assistance with instrumentation, as well as implant fixation and rotator cuff repair, bicep tenodesis, subscapularis tendon repair, assist with wound closure and dressing application. Procedure: Preoperative diagnosis: Right shoulder rotator cuff tear, AC joint arthritis, subacromial impingement, biceps tendinitis Post-op diagnosis: right shoulder rotator cuff tear, subscapularis tendon tear, subacromial impingement, AC joint arthritis, SLAP tear/biceps tendinitis/unstable biceps anchor, glenohumeral joint chondromalacia, circumferential labral fraying Procedure done: Right shoulder diagnostic and surgical arthroscopy with rotator cuff repair (medium/large) Right shoulder diagnostic and surgical arthroscopy with biceps tenodesis Right shoulder diagnostic and surgical arthroscopy with labral debridement Right shoulder diagnostic and surgical arthroscopy with glenohumeral joint chondroplasty Right shoulder diagnostic and surgical arthroscopy with subscapularis tendon repair Right shoulder diagnostic and surgical arthroscopy with subacromial decompression Right shoulder diagnostic and surgical arthroscopy with AC joint resection Surgeon: Anurag White DO Estimated blood loss: 10mL IV fluids: 1000mL Implants: Arthrex 4.75 bicep tenodesis loop and tack kit Arthrex 4.75 double row speed bridge. Additional Arthrex #2 FiberWire Complications: None Condition: stable Disposition: same day Brief History: Patient been seen and worked up in the outpatient setting for?right?shoulder?pain.? Pt had an MRI which showed findings below.? Patient's failed conservative treatment and has weakness.? We talked about treatment options far as nonoperative and operative intervention..? We talked about risk benefits complication alternatives surgical nonsurgical treatment options.? Understanding risk of surgery he agrees to proceed with surgical intervention.? All questions have been answered at this time.? Patient elects proceed with surgery and consent obtained in preoperative holding area for right shoulder diagnostic and surgical arthroscopy with subacromial decompression, AC joint resection, rotator cuff debridement versus repair, possible bicep tenodesis, possible subacromial balloon spacer. MR/MR shoulder RT wo con* [id number] IMPRESSION: 1. Advanced arthritis AC joint with subacromial narrowing. 2. High-grade tear distal supraspinatus with tendon retraction measuring 1.9 cm. 3. Tendinopathy infraspinatus with chronic thinning. 4. Tendinopathy subscapularis with small intrasubstance tear. 5. Biceps tendon appears intact within the bicipital groove. Intra-articular biceps tendon appears intact. 6. Moderate to advanced degenerative narrowing of the glenohumeral articulation with subchondral cystic change involving the glenoid. Procedure: Patient seen evaluated in the preoperative holding area.? Consent reviewed and signed with patient.? Once again reviewed patient's MRI results as well as? planned surgical intervention.? Correct extremity marked.? Patient seen evaluated by anesthesia department received regional anesthesia.? Once ready for surgery was taken back to the operative suite.? Patient then subsequently underwent anesthesia per the anesthesia department was transported onto the OR table.? Patient was then placed into a lateral decubitus position with a beanbag and was appropriately secured to the bed.? All bony prominences well-padded.? Patient then had the?right?upper extremity was then prepped and draped in standard orthopedic fashion.? Patient received appropriate preoperative antibiotics.? Final timeout performed. The?right?upper extremity was then held in hanging from traction utilizing sterile technique.? Next started with standard diagnostic and surgical arthroscopy with posterior portal position introduced arthroscope into the glenohumeral joint.? Visualized the glenohumeral joint I then introduced a spinal needle within the?rotator cuff interval to confirm appropriate anterior portal placement.? Once this was confirmed I then made my small incision and then introduced my arthroscopic shaver into the glenohumeral joint.? After flushing the joint fluid, was clearly evident patient had biceps tendon tearing as well as Superior labral tear. Patient had appreciable unstable biceps anchor most pronounced in the superior labrum. Given there appears to be healthy intra-articular tendon plan was for an intra-articular biceps tenodesis at the superior portion as it enters the intertubercular groove. Thermal wand introduced into the rotator interval. I then release of the rotator interval to have appropriate visualization and the ability to perform biceps tenodesis. At this point I established a purple passport cannula which was introduced. Next I performed an Arthrex loop and tap biceps tenodesis. Passer was then made around the tendon luggage tag stitch around and then thru the tendon per Arthrex protocol, I then utilized a thermal wand to release the biceps tendon at the anchor to perform with tenotomy. I then loaded with suture onto an Arthrex 4.75 swivel lock suture anchor. At this point in time I inspected the subscapularis tendon which patient had not upper border tear. This had some loss of tension and as a result my plan was to utilize a Arthrex FiberWire this was then loaded on the suture passer with the bicep tenodesis kit and then was passed around the subscapularis tendon tear twice and had excellent purchase and fixation this was then subsequently loaded into the Arthrex 4.75 swivel lock anchor with the bicep tenodesis as well. A punch was then placed in appropriate position at the entry point into the intertubercular groove just superior to the subscapularis tendon. Punch was then introduced to the appropriate depth. The suture loaded on the swivel lock was then advanced held under appropriate tension and shoulder lock anchor was then advanced and had excellent fixation. Excess suture was then cut biceps tenodesis and subscapularis tendon repair was complete. I then utilized a thermal wand to seal the edges of the superior labrum. ?Next there was significant labral tearing at biceps anchor and circumferential.? ? I then subsequently utilized a a arthroscopic shaver and thermal wand to perform a labral debridement.? This point time I then visualized the glenohumeral joint.? The glenohumeral joint was found to have grade 2-3? chondromalacia throughout.? At this point in time patient did have some unstable loose articular cartilage and I subsequently performed a glenohumeral joint chondroplasty to stable articular tissue and removed of any unstable articular bodies. Axillary pouch was free of loose bodies from viewing the posterior portal.? Next a visualized the?rotator cuff superiorly and there was found to be a medium to large size tear of the supraspinatus tendon positive escape bubble sign.? I utilized a spinal needle to shabnam this location.?? This completed my work within the glenohumeral joint all fluid was suctioned free of the joint.? ?Next I reintroduced the arthroscope posteriorly.? And went to the subacromial space.? I established my lateral working portal at the site of which my spinal needle was marking of the?rotator cuff tear.? Thermal wand was then introduced laterally and then I subsequently performed extensive bursectomy of the subacromial space.? Patient had a large anterior bone spur.? At this point time I proceeded with my AC joint resection thermal wand was used and track to the anterior edge of the acromion and then tracked all the way to the AC joint.? Once identified the AC joint this was very arthritic in nature.? Thermal wand was placed anteriorly to establish appropriate plane for AC joint resection.? Once appropriate margins and anterior inferior and anterior capsule was released I then introduced arthroscopic shaver and a bur and performed AC joint resection of both the acromion to cope plane at the AC joint and a distal clavicle resection was then performed totaling 1 cm in size and was confirmed.? This completed my AC joint resection and I then introduced the arthroscopic shaver laterally while continuing to view posteriorly.? I then performed an acromioplasty to complete my subacromial decompression prior to fixing the?rotator cuff tear.? Next the arthroscopic shaver was then used previous spinal needle spot that is marked the small hole in the?rotator cuff this was consistent with a medium to large full-thickness tear.? Tissue was grasped and had excellent mobilization excursion for full repair. Given the medium to large size of the tear this would accommodate for double row speed bridge repair. At this point in time I utilized a spinal needle to create an accessory portal for the medial row anchor placement. At this point in time I then subsequently established this portal site and then subsequently began my preparation. I subsequently utilized the arthroscopic power rasp to completely decorticate the rotator cuff footprint in preparation for repair. At this point in time a punch and 4.75 swivel lock was placed in the anterior and posterior medial rows these were impacted with 2 suture tapes that were switched together. These were then secured into place had excellent fixation from a medial row. The sutures were then cut and then subsequently made passes within the rotator cuff tendon and docked these outside of the anterolateral portal. These were passed from anterior to posterior fashion with satisfactory spread of all 4 suture tapes throughout the rotator cuff tear. Once this was then done I then subsequently placed a blue passport cannula for easier suture management no soft tissue bridge. At this point in time thermal wand was used to burn off the lateral ankle root footprint just to have excellent bone visualization. At this point in time I then subsequently loaded sutures 1 and 3 which were then loaded into 4.75 swivel lock this was then subsequently punched appropriate tension was then made and had excellent coverage and bring over of the rotator cuff anteriorly this was then secured down in excess sutures were then cut. I then subsequently grabbed sutures 2 and 4 noted these for the posterior lateral anchor this was subsequently punched appropriate tension held for satisfactory repair and then advance the 4.75 swivel lock with excellent fixation. Both anchors were tested prior to sutures being cut and then I subsequently utilized arthroscopic suture cutter to remove all excess sutures. Subsequently evaluated the?rotator cuff repair.? Repair was found to be satisfactory?shoulder?was taken through range of motion and the repair moved as a unit with no evidence of loss of fixation. ?I then switched the arthroscope to the lateral portal to confirm this tension-free repair.? I took the?shoulder?through range of motion and the?rotator cuff repair was stable and moved as a unit. ?Next I then introduced the arthroscopic shaver posteriorly to complete my subacromial decompression appropriate complaining all the way up to the lateral edge of the acromion.? This completed the surgery.? All fluid was suctioned from the?shoulder.? All instruments were removed.? The lateral incision was then closed with nylon stitches.? As well as the portal sites closed with portal nylon stitches.? Xeroform 4 x 4's ABD and tape was then applied to the?right?shoulder?and was placed into a?shoulder?abduction pillow sling for?rotator cuff repair.? Patient was then awakened from anesthesia and then taken back to PACU in stable condition.? Patient tolerated procedure without any issues. Disposition: Patient taken back in stable condition recovering well.? Dressings on in place clean dry and intact.? Will be nonweightbearing to the?right?upper extremity.? Follow?rotator cuff repair protocol.? Patient to follow-up with ortho in the office in 2 weeks.? Patient will receive appropriate discharge instruction as well as pain medication postoperatively.? All questions answered.? We will contact the office for any questions or concerns.
--- NOTE | 2025-04-12 12:55 | PM.PACU ---
PACU note Narrative: Patient is a 60-year-old male that just underwent a right shoulder arthroscopy with rotator cuff repair. Patient transferred to PACU in stable condition. Pain is well controlled. shoulder Dressing on , dry and in place. Patient's operative arm is in a shoulder immobilizer. Patient is awake and alert and able to respond to my questions accordingly. Patient's fingers are warm with good perfusion. Patient can wiggle fingers. Normal cap refill under 2 seconds. Unable to assess further range of motion in arm due to sling. Sensation to hand intact. Exam: awake Disposition: discharged
--- NOTE | 2025-04-12 13:20 | ANE.PACU2 ---
Inpatient post-anesthesia follow up: Airway intact: Yes Vital signs: Temperature 97.4 F Pulse Rate 75 Respiratory Rate 18 Blood Pressure 158/86 Pulse Oximetry 97 Oxygen Delivery Me thod Room Air Oxygen Flow Rate 6 Fraction of Inspir ed Oxygen Hydration adequate: Yes Nausea and vomiting: No Pain level: 1 Mental status: Baseline
== END 2025-04-12 14:50 | disposition home or self-care (01) ==
PROVIDERS: PCP Family Medicine; Visit Provider Student in an Organized Health Care Education/Training Program
PROC: (CPT 29805; principal; 2025-04-12 11:05)
PROC: (CPT 29826; 2025-04-12 11:05)
PROC: 0RSG0ZZ Reposition Right Acromioclavicular Joint, Open Approach (ICD-10-PCS; CPT 29827; 2025-04-12 11:05)
PROC: (CPT 29827; 2025-04-12 11:05)
PROC: (CPT 23430; 2025-04-12 11:05)
PROC: (CPT 29999; 2025-04-12 11:05)
PROC: (CPT 29806; 2025-04-12 11:05)
PROC: (CPT 29827; 2025-04-12 11:05)
DX: M75.101 Unspecified rotator cuff tear or rupture of right shoulder, not specified as traumatic (principal); M19.011 Primary osteoarthritis, right shoulder; M75.41 Impingement syndrome of right shoulder; M66.311 Spontaneous rupture of flexor tendons, right shoulder; S43.431A Superior glenoid labrum lesion of right shoulder, initial encounter; X58.XXXA Exposure to other specified factors, initial encounter; M75.21 Bicipital tendinitis, right shoulder; M67.911 Unspecified disorder of synovium and tendon, right shoulder; M25.311 Other instability, right shoulder; M94.211 Chondromalacia, right shoulder; Z87.891 Personal history of nicotine dependence; K21.9 Gastro-esophageal reflux disease without esophagitis; I10 Essential (primary) hypertension; E78.5 Hyperlipidemia, unspecified
CPT/HCPCS: 29827; 29828; 29824; 29826; C1713; J0131; J0171; J0690; J1100; J1171; J1885; J2250; J2405; J2704; J2795; J3010; J3490; J7030